=== PATIENT | male | born 1945 | race Native Hawaiian/Other Pacific Islander ===

== ENCOUNTER 2016-10-17 19:41 | Outpatient (CLI) | payer OTHER | END 2016-10-17 19:44 | disposition short-term general hospital (02) | LOC: AMB 19:41 | DX: R07.89 Other chest pain (principal); I25.2 Old myocardial infarction | CPT/HCPCS: A0425; A0427 ==

== ENCOUNTER 2016-10-17 19:49 | Emergency (ER) | payer OTHER ==
[~2016-10-17] VITALS: Ht 182.9 cm; Wt 51.3 kg
[2016-10-17 20:24] LABS: PLATELET COUNT 247 K/uL (142-355)
[2016-10-17 20:34] LABS: POTASSIUM 3.5 mmol/L (3.6-5.2); SODIUM 135 mmol/L (136-145)
[2016-10-17 21:00] VITALS: TEMP 98
[2016-10-17 21:30] VITALS: BP 117/73
[2016-10-17 21:51] LABS: PARTIAL THROMBOPLASTIN TIME 24.1 SECONDS (24.5-33.6)
== END 2016-10-17 21:35 | disposition left against medical advice (07) ==
LOC: EDBD 19:49 → ED 19:49
PROVIDERS: Emergency Medicine
DX: R07.89 Other chest pain (principal); I20.8 Other forms of angina pectoris; E16.1 Other hypoglycemia
CPT/HCPCS: 36415; 80053; 80307; 80320; 80329; 81000; 82550; 82553; 84484; 85027; 85610; 85730; 93005; 99284; G0479

== ENCOUNTER 2017-03-24 16:48 | Inpatient (IN) | payer OTHER ==
[~2017-03-24] VITALS: Ht 182.9 cm; Wt 57.6 kg
[2017-03-24] VITALS (9 sets, daily range): BP systolic 105–128; BP diastolic 70–79; TEMP 98.4–98.6; Ht 182.9 cm; Wt 57.6 kg
--- NOTE | 2017-03-24 17:15 | NUR ---
PT DIRECT ADMITTED FROM DR. VILLALOBOS OFFICE, UPON ARRIVAL PATIENT'S 02 SATURATION WAS 88%, PNEUMONIA PROTICAL STARTED ON PATIENT. ABG PREFORMED, THEN OXYGEN APPLIED AT 2 LITERS.
--- NOTE | 2017-03-24 20:23 | NUR ---
RESP IS AT BEDSIDE. INSTRUCTED PT ON IS AND PT DEMONSTRATED. PT WAS GIVEN RESP TREATMENT PER MASK AND TOLERATED WELL. PT IS COUGHING UNPRODUCTIVELY. SISTER STEPHEN IS HERE. BLOOD WAS DRAWN FOR LABS. PT IS ADMITTED WITH PNEUMONIA.
[2017-03-24 20:28] LABS: PLATELET COUNT 197 K/uL (142-355)
[2017-03-24 20:42] LABS: POTASSIUM 3.8 mmol/L (3.6-5.2); SODIUM 131 mmol/L (136-145)
[2017-03-25] VITALS (22 sets, daily range): BP systolic 11–140; BP diastolic 54–96; TEMP 98.1–99.5
--- NOTE | 2017-03-25 07:00 | NUR ---
UPON PATIENT'S DAILY ASSESSMENT, NOTICED PT'S TEMP WAS ELEVATED AT 99.5, WILL CONTINUE TO MONITOR AND ASSESS TEMP.
[2017-03-25 07:55] LABS: PLATELET COUNT 189 K/uL (142-355)
[2017-03-25 08:23] LABS: POTASSIUM 3.7 mmol/L (3.6-5.2); SODIUM 131 mmol/L (136-145)
--- NOTE | 2017-03-25 09:00 | NUR ---
SPOKE WITH DR. ROBINS AND INFORMED HER OF PATTIENTS MORNING LAB RESULTS. CONTINUING TO MONITOR PATIENTS OXYGEN SATURATION. PATIENT ON 02 AT 2L WITH OXYGEN SATURATION AT 95%
--- NOTE | 2017-03-25 10:00 | NUR ---
PATIENTS FAMILY AT BEDSIDE
--- NOTE | 2017-03-25 12:00 | NUR ---
PT STATED HE DID NOT FEEL WELL, PATIENT'S HANDS WERE TREMBLING AND TEMP REMAINED AT 99.1, CALLED AND SPOKE WITH LAWANDA ASCENCIO TO DRAW NEW BLOOD CULTURES X1 AND GIVE TYLENOL AFTER CULTURES ARE DRAWN. WILL CONTINUE TO MONITOR PATIENT'S CONDITION.
--- NOTE | 2017-03-25 14:00 | NUR ---
SPOKE WITH DR. DRAPER, INFORMED HER OF PATIENT'S HAD SHAKING AND BEING ANXIOUS, DR. DRAPER ORDERED PATIENT ONE BEER EVERY DAY. ALSO ORDERED WAS SOLUMEDROL 125 MG IV EVERY 12 HOURS.
--- NOTE | 2017-03-25 15:05 | NUR ---
PATIENT COMPLAINED OF HEADACHE AND NECK CRAMPS, READJUSTED PATIENT, AND GAVE TYLENOL. PATIENT RESTING COMFORTABLY WITH EYES CLOSED. WILL CONTINUE TO MONITOR.
--- NOTE | 2017-03-25 20:14 | NUR ---
PT AWAKE AND ORIENTED SITTING UP IN BED WITH HOB ELEVATED, NO S/S OF PAIN OR DISTRESS NOTED, IV INTACT TO L FA WITH NO PROBLEMS NOTED TO SITE, RESP RATE NONLABORED, O2 AT 2LPM VIA NC, TALKING WITH FAMILY WHO ARE AT BEDSIDE, WILL MONITOR CLOSELY, RAILS UP X3, CALL LIGHT IN REACH, BED IN LOW POSITION. ENCOURAGED TO CALL NEEDED.
--- NOTE | 2017-03-25 21:03 | NUR ---
03/25/17 AT 2024DR. ROBINS AND FAMILY AT BEDSIDE, NO S/S OF DISTRESS NOTED, DR TALKING TO FAMILY ABOUT HIS CARE AND ASKING IF PT WOULD WANT A PEG TUBE TO IMPROVE HIS NUTRITIONAL STATUS. WILL CONTINUE TO MONITOR CLOSEY, RAILS UP X3, CALL LIGHT IN REACH, BED IN LOW POSITION.
--- NOTE | 2017-03-25 21:06 | NUR ---
PT DRANK 1 ENSURE MIXED IN ICE CREAM. WILL MONITOR CLOSELY.
--- NOTE | 2017-03-25 22:09 | NUR ---
PT RESTING WITH EYES CLOSED, NO S/S OF PAIN OR DISTRESS NOTED, IV INTACT WITH FLUID ONGOING, RESP RATE NONLABORED, O2 AT 2LPM VIA NC, URINAL AT BEDSIDE, PT AROUSES AND DENIES ANY PROBLEMS, REPOSITIONED TO L SIDE WITH FEET ELEVATED ON PILLOW, WILL MONITOR, RAILS UP X3, CALL LIGHT IN REACH, BED IN LOW POSITION.
[2017-03-26] VITALS (24 sets, daily range): BP systolic 101–157; BP diastolic 60–110; TEMP 97.7–99.3
--- NOTE | 2017-03-26 00:58 | NUR ---
03/26/17 AT 0018PT RESTING IN BED WITH EYES CLOSED AND SNORNING NOTED, NO S/S OF PAIN OR DISTRESS NOTED, IV INTACT WITH FLUID ONGOING, RESP RATE NONLABORED, O2 AT 2LPM VIA NC, URINAL AT BEDSIDE, REPOSITIONED TO BACK WITH FEET ELEVATED ON PILLOW, WILL MONITOR, RAILS UP X3, BED IN LOW POSITION.
--- NOTE | 2017-03-26 02:18 | NUR ---
03/26/17 AT 0208RESTING IN BED WITH EYES CLOSED AND SNORING NOTED, NO S/S OF PAIN OR DISTRESS NOTED, RESP RATE NONLABORED, O2 AT 2LPM VIA NC, IV INTACT WITH FLUID ONGOING AND NO PROBLEMS NOTED TO SITE, REPOSITIONED TO R SIDE, FEET ELEVATED ON PILLOW, WILL MONITOR, RAILS UP X3, BED IN LOW POSITION.
--- NOTE | 2017-03-26 04:09 | NUR ---
PT RESTING QUIETLY IN BED WITH EYES CLOSED, NO S/S OF PAIN OR DISTRESS NOTED, IV INTACT TO L FA WITH NO PROBLEMS NOTED TO SITE AND BANANA BAG INFUSING AT 83ML/HR, RESP RATE NONLABORED, O2 AT 2LPM VIA NC, URINAL WITHIN PT'S REACH, VITALS BEING MONITORED Q HOUR. REPOSITIONED PT TO HIS BACK, FEET ELEVATED ON PILLOW, WILL MONITOR CLOSELY, RAILS UP X3, BED IN LOW POSITION, CALL LIGHT IN REACH. PT HAS SLEPT WELL DURING THE NIGHT.
--- NOTE | 2017-03-26 04:36 | NUR ---
PT AROUSES AND DENIES ANY PROBLEMS, ASKED WHAT TIME IT IS, STATES THAT HE IS GLAD HE FINALLY GOT SOME SLEEP, WILL CONTINUE TO MONITOR CLOSELY, RAILS UP X3, BED IN LOW POSITION, CALL LIGHT IN REACH.
[2017-03-26 05:53] LABS: PLATELET COUNT 184 K/uL (142-355)
[2017-03-26 06:05] LABS: POTASSIUM 2.8 mmol/L (3.6-5.2); SODIUM 136 mmol/L (136-145)
--- NOTE | 2017-03-26 06:24 | NUR ---
PT RESTING IN BED WITH EYES CLOSED, NO S/S OF PAIN OR DISTRESS NOTED, IV INTACT WITH FLUID ONGOING, RESP RATE NONLABORED, O2 IN USE, REPOSITIONED TO L SIDE WITH FEET ELEVATED ON PILLOW, PT AROUSED AND DENIES ANY PROBLEMS OR NEEDS, WILL MONITOR CLOSELY, RAILS UP X3, BED IN LOW POSITION.
--- NOTE | 2017-03-26 09:15 | NUR ---
RESPIRATORY AT BS. ALBUTEROL TX ADMINISTERED. HR 90-94 WHILE DOING TX. NAD NOTED.
--- NOTE | 2017-03-26 10:30 | NUR ---
PT VOICES C/O HAVING A VERY SORE THROAT. WHILE AT , PT VOICES THAT HE HAS HAD AN EGD WITH ESOPHAGUS STRETCHING 3-4 YEARS AGO. ALISA ADDISON, RN EXPLAINED TO THE PT THAT WE MAY NEED TO GO BACK IN AND BE SURE HIS ESOPHAGUS DOES NOT NEED TO BE RESTRETCHED. PT CONSENTED TO HAVING THE EGD. DR. ROBINS NOTIFIED OF HX. DR. ROBINS ADVISED US TO CONSULT WITH DR. DILLON. DR. DILLON NOTIFIED. SURGERY TEAM NOTIFIED. WILL WAIT FOR ADEQUATE AMOUNT OF HOURS FROM LAST FLUID INTAKE.
--- NOTE | 2017-03-26 11:20 | NUR ---
PT TRANSFERRED FROM [facility] VIA W/C, PT AWAKE, ANSWERS QUESTIONS WHEN ASKED.
--- NOTE | 2017-03-26 11:20 | NUR ---
PT AT BS AND SAT PT UP ON THE SIDE OF THE BED. PT BECAME TACHYCARDIC. PT ASSISTED BACK TO LYING IN THE BED.
--- NOTE | 2017-03-26 11:36 | NUR ---
PT AT BS TO ASSIST PT TO SIT UP ON THE SIDE OF THE BED. PT TOLERATING WELL. NAD NOTED.
--- NOTE | 2017-03-26 13:50 | NUR ---
PT TOOK TO OR VIA BED BY OR STAFF. NAD NOTED. PT TALKING TO STAFF IN ROUTE TO OR. FAMILY NOTIFIED OF EGD BEING PERFORMED.
[2017-03-27] VITALS: BP 140/84; TEMP 98.1
[2017-03-27 04:00] VITALS: BP 149/84; TEMP 97.9
[2017-03-27 06:04] LABS: PLATELET COUNT 222 K/uL (142-355)
[2017-03-27 06:23] LABS: SODIUM 135 mmol/L (136-145)
[2017-03-27 08:00] VITALS: BP 155/75; TEMP 98.8
[2017-03-27 12:00] VITALS: BP 142/79; TEMP 98.8
--- NOTE | 2017-03-27 14:20 | NUR ---
IV TO LEFT WRIST LEAKING. IV D/C'D. 22G STARTED TO PTS RIGHT AC. IV PLACED WITH STERILE TECHNIQUE. PT TOLERATED PROCEDURE WELL. IV FLUIDS RESTARTED AND INFUSING WITHOUT DIFFICULTY.
[2017-03-27 16:00] VITALS: BP 153/92; TEMP 98.6
[2017-03-27 20:00] VITALS: BP 148/88; TEMP 98.6
[2017-03-28] VITALS: BP 148/82; TEMP 98.4
[2017-03-28 04:00] VITALS: BP 138/80; TEMP 98.3
[2017-03-28 05:23] LABS: PLATELET COUNT 282 K/uL (142-355)
[2017-03-28 06:04] LABS: POTASSIUM 3.6 mmol/L (3.6-5.2); SODIUM 133 mmol/L (136-145)
[2017-03-28 08:00] VITALS: BP 149/87; TEMP 98.6
[2017-03-28 12:00] VITALS: BP 152/86; TEMP 97.9
[2017-03-28 16:00] VITALS: BP 141/87; TEMP 97.9
--- NOTE | 2017-03-28 16:06 | NUR ---
PATIENT DISCHARGED HOME WITH NIECE. SCRIPT FOR BEDSIDE COMMODE, WALKER WITH WHEELS AND HOSPITAL BED GIVEN TO DAUGHTER. ORDER FAXED TO [facility] FOR PT AND OT TO EVAL AND TREAT. METER TESTER WILL FAX CLINICAL INFORMATION TO [facility] ON FRIDAY, MARCH 31, 2017 FOR POSSIBLE SWING BED PLACEMENT IF PATIENT DOES NOT PROGRESS AT HOME.
--- NOTE | 2017-03-28 17:29 | NUR ---
DC INSTRUCTIONS GIVEN TO PT AND FAMILY. EDUCATION PROVIDED FOR SMOKING AND ALCOHOL CESSATION. ENCOURAGED PT TO DRINK ENSURE PLUS BID UNLESS NOT EATING AND THEN 5 CANS A DAY IF NOT EATING. RX GIVEN TO PT AND FAMILY. PT TO FOLLOW UP WITH DR ROBINS IN 10 DAYS AND TO BRING FOOD AND BM JOURNAL WITH PT TO APPT. IV DC'D WITH CANNULA INTACT AND SITE CARE PROVIDED.
--- NOTE | 2017-03-28 18:00 | NUR ---
PT LEFT VIA WC AT THIS TIME
== END 2017-03-28 18:00 | disposition home or self-care (01) | DRG 190 ==
LOC: ICU 16:48 → MED/SURG 03-26 20:55 → EDBD 03-28 18:00 → MED/SURG 03-28 18:00
PROVIDERS: ADMIT Family Medicine
PROC: 0D758ZZ Dilation of Esophagus, Via Natural or Artificial Opening Endoscopic (ICD-10-PCS; principal; 2017-03-26)
DX: J44.0 Chronic obstructive pulmonary disease with (acute) lower respiratory infection (principal); J18.8 Other pneumonia, unspecified organism; E46 Unspecified protein-calorie malnutrition; Z68.1 Body mass index [BMI] 19.9 or less, adult; J44.1 Chronic obstructive pulmonary disease with (acute) exacerbation; R62.7 Adult failure to thrive; F10.10 Alcohol abuse, uncomplicated; I95.9 Hypotension, unspecified; J44.9 Chronic obstructive pulmonary disease, unspecified; R13.19 Other dysphagia; K44.9 Diaphragmatic hernia without obstruction or gangrene; K20.8 Other esophagitis; G47.09 Other insomnia; K29.00 Acute gastritis without bleeding; E86.0 Dehydration
CPT/HCPCS: 36415; 36600; 80053; 80200; 81000; 82746; 82805; 83605; 83735; 84100; 84134; 84425; 84443; 85027; 87040; 87070; 87205; 90732; 93005; 94640; 94664; 94760; 96372; J1100; J1200; J1956; J2001; J2060; J2405; J2704; J2930; J3260; J3411; J3475; J3480; J3490

== ENCOUNTER 2017-05-15 11:20 | Outpatient (CLI) | payer OTHER | END 2017-05-15 19:39 | disposition home or self-care (01) | LOC: RAD 11:20 → EDBD 11:20 → RAD 19:39 | DX: R13.12 Dysphagia, oropharyngeal phase (principal) ==

== ENCOUNTER 2017-07-21 17:49 | Observation (INO) | payer OTHER ==
[~2017-07-21] VITALS: Ht 182.9 cm; Wt 47.8 kg
[2017-07-21 20:41] LABS: PLATELET COUNT 375 K/uL (142-355)
[2017-07-21 21:17] LABS: POTASSIUM 4.7 mmol/L (3.6-5.2)
[2017-07-21 22:18] VITALS: BP 145/92; TEMP 98.9; Ht 182.9 cm; Wt 47.8 kg
--- NOTE | 2017-07-21 23:22 | NUR ---
1930 ASSESSMENT DONE, PATIENT & FAMILY ORIENTED TO ROOM, DENIES ANY C/O, WILL CONTINUE TO MONITOR
[2017-07-21] MEDS ORDERED: PENTOXIFYLLINE400 M1 PO (23:55)
[2017-07-21] MEDS ORDERED: COZAAR100 MG PO (23:56)
[2017-07-21] MEDS ORDERED: MEGE40TA32 PO (23:57)
[2017-07-21] MEDS ORDERED: LIPITOR10 MG PO (23:57)
[2017-07-21] MEDS ORDERED: PRED20TA27 PO (23:58)
[2017-07-22 00:25] VITALS: BP 152/88; TEMP 98.7
[2017-07-22 04:00] VITALS: BP 167/91; TEMP 98
[2017-07-22 08:00] VITALS: BP 169/96; TEMP 98.3
[2017-07-22 09:40] LABS: PLATELET COUNT 339 K/uL (142-355)
[2017-07-22 09:56] LABS: POTASSIUM 4.5 mmol/L (3.6-5.2)
[2017-07-22 12:00] VITALS: BP 154/81; TEMP 98.3
--- NOTE | 2017-07-22 12:15 | NUR ---
PATIENT IS SITTING UP IN BED AFTER EATING A LITTLE OF HIS LUNCH BUT STATES THAT IT WAS TO HARD HE COULD NOT EAT IT. PATIENT HAD MASHED POTATOES, CUBED STEAK, OKRA AND TOMATOES. PATIENT STATED THAT THE MASHED POTATOES DIDN'T TASTE RIGHT. HOW EVER HIS NURSE TOLD ME THAT HE HAD A HIGH CALORIE SUPPLEMENT DRINK ABOUT ON HOUR AGO. PATIENT DENIES COMPLAINTS AND STATES HE IS READY TO GO HOME. NO PROBLEMS NOTED AT THIS TIME. PATIENT IS ALERT AND ORIENTED X4 AND NO SOB NOTED. PATIENT ALSO STATED THAT HE FELT MUCH BETTER.
--- NOTE | 2017-07-22 12:31 | NUR ---
PAULY DUTTA APPLIED TO SEBASTIEN EXT. NO PROBLEMS NOTED.
--- NOTE | 2017-07-22 14:20 | NUR ---
PATIENT IS BEING DISCHARGED HOME TODAY AND IS BEING REFERRED TO [facility] FOR READMISSION TO THEIR SERVICES.
[2017-07-22 16:00] VITALS: BP 161/81; TEMP 98.1
--- NOTE | 2017-07-22 16:30 | NUR ---
JP HERE TO CONSULT WITH PT AND TO TALK WITH FAMILY. JP WROTE ORDERS TO START SOFT DIET AND SUPERVISION NEEDED. BEREKET GARZA AND JP DUNLAP TALKED WITH FAMILY AND FAMILY VERBALIZES UNDERSTANDING AND IS AWARE OF NEED FOR SWALLOW STUDY. BLANKA DORAN SENT REFERRAL FOR [facility].
--- NOTE | 2017-07-22 16:47 | NUR ---
CALLED AND SPOKE WITH PATIENT'S NIECE, KAREEM INGRAM. THEY PLAN TO TAKE PATIENT BACK TO HER MOTHER'S HOME WHO IS HIS PRIMARY EDUCATIONAL CONSULTANT. DISCUSSED WITH NIECE DR. ROBINS'S RECOMMENDATIONS FOR PEG TUBE AND HOSPICE REFERRAL AND THE FAMILY DECLINES SERVICES AT THIS TIME. PATIENT WILL BE REFERRED BACK TO [facility] FOR FOLLOW UP.
--- NOTE | 2017-07-22 18:25 | NUR ---
DR. MELENDEZ HERE TO CONSULT WITH PT AND TO TALK TO FAMILY. FAMILY TELLS DR. MELENDEZ AND BEREKET RN THAT SWALLOW STUDY IS NOT NEEDED AT THIS TIME. PT WAITING ON RIDE TO GO HOME AT THIS TIME.
--- NOTE | 2017-07-22 18:50 | NUR ---
IV D/C'D. D/C PAPERS SIGNED BY FAMILY. FAMILY STATES UNDERSTANDING. FAMILY INSTRUCTED TO FU WITH DR. ROBINS. PT WHEELED OUT AT THIS TIME VIA W/C. NO PROBLEMS NOTED.
== END 2017-07-22 18:30 | disposition home or self-care (01) ==
LOC: MED/SURG 17:49
PROVIDERS: ADMIT Family Medicine
DX: J44.1 Chronic obstructive pulmonary disease with (acute) exacerbation (principal); R05 Cough; R63.0 Anorexia; F03.90 Unspecified dementia, unspecified severity, without behavioral disturbance, psychotic disturbance, mood disturbance, and anxiety; F10.20 Alcohol dependence, uncomplicated; R53.1 Weakness; R06.02 Shortness of breath; R26.81 Unsteadiness on feet
CPT/HCPCS: 36415; 36600; 80053; 80335; 82805; 83735; 84100; 85027; 85610; 87070; 87205; 93005; 94640; 94664; 94760; 96365; 96366; 96375; 99220; G0378; G0379; J2930

== ENCOUNTER 2018-08-18 19:41 | Observation (INO) | payer OTHER ==
[~2018-08-18] VITALS: Ht 182.9 cm; Wt 50.1 kg
[~2018-08-18 19:41] MED LIST: COZAAR100 MG PO; LIPITOR10 MG PO; MEGE40TA32 PO; PENTOXIFYLLINE400 M1 PO; PRED20TA27 PO
[2018-08-18] MEDS ORDERED: KAPSPARGO SPRI100 MG PO (19:54)
[2018-08-18] MEDS ORDERED: PANTOPRAZOLE SO40 M1 PO (19:54)
[2018-08-18] MEDS ORDERED: ALPR0.5T24 PO (19:55)
[2018-08-18] MEDS ORDERED: ASPIR-LOW81 MG PO (19:56)
[2018-08-18] MEDS ORDERED: SYMBICORT1 AE1 INH (19:57)
[2018-08-18] MEDS ORDERED: RANI150T78 PO (19:57)
[2018-08-18] MEDS ORDERED: [UNRECOGNIZED DRUG - OTHER] PO (19:58)
[2018-08-18] MEDS ORDERED: VITAMIN B-122000 MCG PO (19:58)
[2018-08-18] MEDS ORDERED: PERCOCET1 TA3 PO (19:59)
[2018-08-18 20:03] VITALS: BP 131/74; TEMP 99
[2018-08-18 20:23] LABS: PLATELET COUNT 313 K/uL (142-355)
[2018-08-18 21:29] LABS: POTASSIUM 4.4 mmol/L (3.6-5.2); SODIUM 136 mmol/L (136-145)
[2018-08-18 22:41] VITALS: BP 141/84; TEMP 98; Ht 182.9 cm; Wt 50.1 kg
[2018-08-19] VITALS: BP 141/81; TEMP 98
[2018-08-19 05:12] VITALS: BP 117/62; TEMP 98.6
[2018-08-19 08:00] VITALS: BP 135/88; TEMP 97.5
[2018-08-19 12:00] VITALS: BP 130/82; TEMP 98.1
[2018-08-19 14:03] LABS: PARTIAL THROMBOPLASTIN TIME 29.2 SECONDS (24.5-33.6)
[2018-08-19 16:00] VITALS: BP 151/89; TEMP 97.8
[2018-08-19 20:00] VITALS: BP 141/91; TEMP 97.9
[2018-08-20] VITALS: BP 148/88; TEMP 97.9
[2018-08-20 04:00] VITALS: BP 142/78; TEMP 98
[2018-08-20 05:43] LABS: PLATELET COUNT 314 K/uL (142-355)
[2018-08-20 06:01] LABS: POTASSIUM 4.8 mmol/L (3.6-5.2)
[2018-08-20 08:00] VITALS: BP 148/87; TEMP 98.2
[2018-08-20 12:00] VITALS: BP 145/89; TEMP 97.6
== END 2018-08-20 17:10 | disposition home or self-care (01) ==
LOC: ED 19:41 → MED/SURG 21:59
PROVIDERS: Emergency Medicine; Internal Medicine; ADMIT Internal Medicine
DX: J44.1 Chronic obstructive pulmonary disease with (acute) exacerbation (principal); I10 Essential (primary) hypertension; E78.49 Other hyperlipidemia; I73.9 Peripheral vascular disease, unspecified; R63.6 Underweight; Z68.1 Body mass index [BMI] 19.9 or less, adult; F17.210 Nicotine dependence, cigarettes, uncomplicated; R09.02 Hypoxemia; R06.09 Other forms of dyspnea; M25.552 Pain in left hip; M54.5 Low back pain
CPT/HCPCS: 80053; 82550; 82553; 84484; 85027; 85610; 85730; 93005; 94640; 94664; 94760; 96374; 99220; 99284; G0378; J0132; J0696; J1650; J2920; J2930

== ENCOUNTER 2019-03-23 13:55 | Outpatient (CLI) | payer OTHER ==
[~2019-03-23 13:55] MED LIST changes: +ALPR0.5T24 PO; +ASPIR-LOW81 MG PO; +KAPSPARGO SPRI100 MG PO; +PANTOPRAZOLE SO40 M1 PO; +PERCOCET1 TA3 PO; +RANI150T78 PO; +SYMBICORT1 AE1 INH; +VITAMIN B-122000 MCG PO; +[UNRECOGNIZED DRUG - OTHER] PO
== END 2019-03-23 13:59 | disposition short-term general hospital (02) ==
LOC: AMB 13:55
DX: R06.03 Acute respiratory distress (principal); R94.31 Abnormal electrocardiogram [ECG] [EKG]
CPT/HCPCS: A0425; A0427

== ENCOUNTER 2019-03-23 14:09 | Emergency (ER) | payer OTHER ==
[~2019-03-23] VITALS: Ht 182.9 cm; Wt 49.9 kg
[2019-03-23 14:32] LABS: PLATELET COUNT 398 K/uL (142-355)
[2019-03-23 14:38] LABS: POTASSIUM 4.1 mmol/L (3.6-5.2); SODIUM 140 mmol/L (136-145)
[2019-03-23 18:25] VITALS: BP 147/88; TEMP 98
== END 2019-03-23 18:26 | disposition home or self-care (01) ==
LOC: ED 14:09
PROVIDERS: Emergency Medicine
DX: R06.03 Acute respiratory distress (principal); R09.02 Hypoxemia
CPT/HCPCS: 80053; 82550; 82553; 83605; 83880; 84484; 85027; 93005; 94664; 96365; 99284; J0696

== ENCOUNTER 2020-09-21 15:15 | Outpatient (CLI) | payer OTHER | END 2020-09-21 23:51 | disposition home or self-care (01) | LOC: RAD 15:15 | PROVIDERS: ATTEND Family Medicine | DX: M54.5 Low back pain (principal); M54.2 Cervicalgia; M25.552 Pain in left hip ==

== ENCOUNTER 2020-10-29 11:25 | Outpatient (CLI) | payer OTHER | END 2020-10-29 22:42 | disposition home or self-care (01) | LOC: RAD 11:25 | PROVIDERS: ATTEND Family Medicine | DX: J44.9 Chronic obstructive pulmonary disease, unspecified (principal); R05 Cough ==

== ENCOUNTER 2020-12-04 16:26 | Inpatient (IN) | payer OTHER ==
[2020-12-04] VITALS (7 sets, daily range): BP systolic 108–130; BP diastolic 62–69; TEMP 97.9–98.5; Ht 182.9 cm; Wt 49.6 kg
[~2020-12-04] VITALS: Ht 182.9 cm; Wt 49.6 kg
[2020-12-04 17:12] LABS: PLATELET COUNT 258 K/uL (142-355)
[2020-12-04 17:20] LABS: POTASSIUM 4.3 mmol/L (3.6-5.2); SODIUM 136 mmol/L (136-145)
--- NOTE | 2020-12-05 00:25 | NUR ---
INCREASED FIO2 TO 50%
--- NOTE | 2020-12-05 03:32 | NUR ---
LATE ENTRY: PATIENT WAS ASSESED UPON ARIVAL. NEW ORDERS WERE GIVEN FOR PATIENT TO BE PUT ON HIGHFLOW AND ADJUSTED BYT RT. PATIENT RESTING COMFORTABLY.
[2020-12-05 05:41] LABS: PLATELET COUNT 231 K/uL (142-355)
--- NOTE | 2020-12-05 05:41 | NUR ---
PATIENT TEMP IS TEMP 99. PATIENT RESTING COMFORTABBLY
[2020-12-05 05:58] LABS: POTASSIUM 4.5 mmol/L (3.6-5.2)
[2020-12-05 07:00] VITALS: BP 116/60
[2020-12-05 08:00] VITALS: BP 113/65; TEMP 98.2
--- NOTE | 2020-12-05 08:26 | NUR ---
DECREASED FIO2 TO 40% AT 40LPM ON HFNC. SPO2 AT 93%
[2020-12-05 09:00] VITALS: BP 112/66
--- NOTE | 2020-12-05 11:47 | NUR ---
SPOKE WITH PT'S ACQUISITIONS LIBRARIAN STEPHEN WHO GAVE CONSENT TO START REMDISIVIR.
--- NOTE | 2020-12-05 14:45 | NUR ---
PLACED PT ON 4LPM WITH HUMIDITY. SPO2 AT 94%
--- NOTE | 2020-12-05 18:14 | NUR ---
[facility] CONTACTED PER S JE RN TO REQUEST AN UPDATED HOMEMED LIST. INFOMRED THEY WOULD FAX UPDATED ONE.
[2020-12-05] MEDS ORDERED: CETI10TA PO (18:30)
[2020-12-05] MEDS ORDERED: METO100T37 PO (18:32)
[2020-12-05] MEDS ORDERED: ALPR0.5T24 PO (18:33)
[2020-12-05] MEDS ORDERED: AMLODIPINE BESYLATE PO (18:34)
[2020-12-05] MEDS ORDERED: SERTRALINE HYD100 MG PO (18:35)
[2020-12-05] MEDS ORDERED: OMEPRAZOLE DR40 MG PO (18:36)
[2020-12-05] MEDS ORDERED: PRAMIPEXOLE0.125 MG PO (18:37)
[2020-12-05 19:00] VITALS: TEMP 101.4
--- NOTE | 2020-12-05 20:45 | NUR ---
GIVEN TYLENOL 1000MG PO X 1 DOSE FOR AXILLARY TEMP OF 101.4. WILL MONITOR CLOSELY, PT DENIES ANY NEEDS AT THIS TIME.
--- NOTE | 2020-12-05 21:20 | NUR ---
NO REACTIONS NOTED TO TYLENOL, TEMP HAS DECREASED TO 100.5 AT THIS TIME. NO S/S OF DISTRESS NOTED, PT RESTING OFF AND ON WITH EYES CLOSED.
[2020-12-05 23:30] VITALS: TEMP 98.2
--- NOTE | 2020-12-05 23:30 | NUR ---
AXILLARY TEMP HAS NOW DECREASED TO 98.2.
[2020-12-06] VITALS (12 sets, daily range): BP systolic 107–150; BP diastolic 65–93; TEMP 97.6–98.2
--- NOTE | 2020-12-06 01:10 | NUR ---
RESTING WITH EYES CLOSED IN POSITON OF COMFORT, NO S/S OF PAIN OR DISTRESS NOTED, RESP RATE NONLABORED, O2 IN USE VIA NC, VITALS BEING MONITORED, IV LOCK INTACT, WILL MONITOR CLOSELY, RAILS UP, BED IN LOW POSITION.
[2020-12-06 04:54] LABS: PLATELET COUNT 262 K/uL (142-355)
[2020-12-06 05:22] LABS: POTASSIUM 4.6 mmol/L (3.6-5.2)
--- NOTE | 2020-12-06 05:42 | NUR ---
RESTING ON L SIDE WITH EYES CLOSED, NO S/S OF PAIN OR DISTRESS NOTED, RESP RATE NONLABORED, O2 IN USE VIA NC WITH SAT OF 95%, DIRECTOR OF RESOURCE DEVELOPMENT IN USE WITH RATE OF 75, VITALS BEING MONITORED, 20G IV INTACT TO R AC, URINAL WITHIN PT'S REACH, WILL MONITOR, RAILS UP, BED IN LOW POSITION.
--- NOTE | 2020-12-06 08:37 | NUR ---
CHANGED TO NRB BECAUSE TO SAT.
--- NOTE | 2020-12-06 13:33 | NUR ---
PT RESTING QUIETLY. NO DISTRESS NOTED. PT IS NOTED TO HAVE SOME WEAKNESS WITH STANDING. PT IS ALERT AND ORIENTED. LUNGS ARE DIMINISHED. HEART RATE REGULAR. SKIN WARM AND DRY. NO WOUNDS NOTED. PT USES URINAL. WILL CONTINUE TO MONITOR PT.
--- NOTE | 2020-12-06 15:46 | NUR ---
REPORT GIVEN TO BEE ADRIAN AT THIS TIME BY JANUARY ALFARO RN
--- NOTE | 2020-12-06 15:47 | NUR ---
PT TRANSFERRED VIA W/C TO ROOM 1129 PER MD ORDERS WITH NON-REBREATHER ON. PER NGUYỄN, COPPERSMITH HELPER DR. ROBINS ORDERED PT TO BE PLACED IN ROOM 1129 ON V/S MACHINE WITH CONTINUOUS PULSE OX WITH MACHINE PLACED WHERE O2 SATS CAN BEEN SEEN AT NURSES STATION AND PT'S O2 SATS MONITORED CONTINUOUSLY.
--- NOTE | 2020-12-06 16:38 | NUR ---
PT TRANSFERRED FROM PCU#1 TO MED-SURG FLOOR AT 1500 PER HCP AND CONTINUE ORDERS PREVIOUSLY WRIITEN. PT DX WITH COVID, N/V AND DIARRHEA. HX OF HTN, COPD AND ANXIETY. PT ON NON-REBREATHER O2. HAS 20 GA TO RAC,SALINE LOCK WITH NO SWELLING OR REDNESS NOTED TO SITE. PT VOMITING IN BED M[place]INO DURING TRANSFER FROM PCU TO [facility]. ADMINISTER ZOFRAN ORDERED FOR N/V. CT OF CHEST DONE ON 12/05/20 AND SHOWS 6CM RIGHT UPPER LOBE MASS. PT ALERT AND COHERENT. PTS WALLET WHICH CONTAINED A SIGNIFICANT AMOUNT OF SOLORZANO, DEBIT CARD, MEDICARE CARD, INSURANCE CARD, DRIVERS LICENSE AND RECEIPTS LOCKED IN LOCK BOX IN MED ROOM AND PT UNABLE TO SIGN BUT SIGNED BY PRIMARY NURSE AND TECH PRIOR TO BEING LOCKED IN LOCK BOX.
--- NOTE | 2020-12-06 18:25 | NUR ---
IV SITE D/C'D DUE TO LEAKING FLUIDS. NEW IV SITE STARTED X5 ATTEMPTS TO LFA WITH 22GA AND INTACT AND NO SWELLING OR REDNESS NOTED.
--- NOTE | 2020-12-06 21:49 | NUR ---
PM MEDS GIVEN AT THIS TIME. PT. TOLERATED WELL. PT. SITTING UP IN A HIGH-FOWLERS POSITION WITH SIDE RAILS UP TIMES TWO WITH BED IN LOWEST POSITION WITH CALL LIGHT WITHIN REACH. PT. ON NON-REBREATHER MASK SATTING 94% AT THIS TIME WITH NO S/S OF ACUTE DISTRESS NOTED OR EXPRESSED BY PT AT THIS TIME. WILL CONTINUE TO MONITOR FOR ANY ACUTE CHANGES BY PATIENT.
[2020-12-07] VITALS (7 sets, daily range): BP systolic 114–139; BP diastolic 63–75; TEMP 96.1–98.3
--- NOTE | 2020-12-07 01:15 | NUR ---
22 G TO THE RIGHT FOREARM INITIATED AT THIS TIME TIMES ONE ATTEMPT. SITE PATENT AND READY OF USE. NO SIGNS OF EDEMA OR ERRYTHEMA TO SITE AT THIS TIME.
[2020-12-07 08:24] LABS: PLATELET COUNT 326 K/uL (142-355)
--- NOTE | 2020-12-07 11:23 | NUR ---
UPDATE GIVEN TO IRIS ABURTO WITH USE OF HIPAA PASSWORD.
--- NOTE | 2020-12-07 20:41 | NUR ---
PM MEDS GIVEN AT THIS TIME. PT. TOLERATED WELL. PT SATTING 92% ON 5L N/C IN A HIGH FOWLERS POSITION WITH SIDE RAILS UP TIMES TWO WITH BED IN LOWEST POSITION WITH CALL LIGHT WITHIN REACH. TELEMETRY AND PULSE OXIMETRY INTACT AND NO S/S OF ACUTE DISTRESS NOTED OR EXPRESSED BY PT.
[2020-12-08 04:00] VITALS: BP 112/65; TEMP 97.4
[2020-12-08 05:32] LABS: PLATELET COUNT 351 K/uL (142-355)
[2020-12-08 08:00] VITALS: BP 124/96; TEMP 97.4
--- NOTE | 2020-12-11 14:38 | NUR ---
pt scheduled for DEVELOPMENT VICE PRESIDENT appt with Dr. Bueno today 12/11 @ 2pm [phone] and fo fu with pcp Dr. Linda Coleman 12/14/20 @ 10am telehealth [phone] i have faxed DC summary to them. Jordana sofia notified.
== END 2020-12-08 14:35 | disposition home or self-care (01) | DRG 177 ==
LOC: ED 16:26 → PCU 20:09 → MED/SURG 12-06 16:20
PROVIDERS: Emergency Medicine Emergency Medical Services; ADMIT Family Medicine; ATTEND Family Medicine
DX: U07.1 COVID-19 (principal); J12.82 Pneumonia due to coronavirus disease 2019; J44.0 Chronic obstructive pulmonary disease with (acute) lower respiratory infection; F03.90 Unspecified dementia, unspecified severity, without behavioral disturbance, psychotic disturbance, mood disturbance, and anxiety; R91.8 Other nonspecific abnormal finding of lung field; I10 Essential (primary) hypertension
CPT/HCPCS: 36415; 36600; 80053; 82728; 82805; 83735; 84100; 84484; 85027; 85379; 86140; 87040; 87635; 94760; 96374; 99284; 99285; J0456; J0696; J1650; J2405; J3475; U0003

== ENCOUNTER 2021-02-04 20:37 | Inpatient (IN) | payer OTHER ==
[~2021-02-04] VITALS: Ht 182.9 cm; Wt 48.2 kg
[~2021-02-04 20:37] MED LIST changes: +AMLODIPINE BESYLATE PO; +CETI10TA PO; +METO100T37 PO; +OMEPRAZOLE DR40 MG PO; +PRAMIPEXOLE0.125 MG PO; +SERTRALINE HYD100 MG PO
[2021-02-04 20:50] VITALS: BP 151/70; TEMP 98.4
[2021-02-04 21:01] VITALS: BP 159/41
[2021-02-04 21:34] LABS: PLATELET COUNT 580 K/uL (142-355)
[2021-02-04 21:45] VITALS: BP 156/82
[2021-02-04 21:57] LABS: POTASSIUM 4.9 mmol/L (3.6-5.2)
[2021-02-04 22:30] VITALS: BP 140/73
[2021-02-04 23:00] VITALS: BP 142/66
[2021-02-04 23:30] VITALS: BP 143/65
[2021-02-05 00:01] VITALS: BP 156/85
[2021-02-05 01:15] VITALS: BP 156/78; TEMP 98.4
[2021-02-05 01:39] VITALS: BP 140/66; TEMP 98.1; Ht 182.9 cm; Wt 48.2 kg
[2021-02-05 04:00] VITALS: BP 140/67; TEMP 96.1
[2021-02-05 05:50] LABS: POTASSIUM 4.4 mmol/L (3.6-5.2)
[2021-02-05 08:00] VITALS: BP 152/79; TEMP 97.7
[2021-02-05 14:02] LABS: PLATELET COUNT 479 K/uL (142-355)
[2021-02-05 14:18] LABS: POTASSIUM 4.4 mmol/L (3.6-5.2)
[2021-02-05 20:00] VITALS: BP 135/68; TEMP 98.5
[2021-02-06] VITALS (8 sets, daily range): BP systolic 128–149; BP diastolic 61–78; TEMP 97.5–98.8
[2021-02-06 05:42] LABS: PLATELET COUNT 469 K/uL (142-355)
[2021-02-06] MEDS ORDERED: ALPR0.5T24 PO (08:31)
[2021-02-06] MEDS ORDERED: AMLODIPINE BESYLATE PO (08:32)
[2021-02-06] MEDS ORDERED: ASPIR-LOW81 MG (08:33)
[2021-02-06] MEDS ORDERED: FAMOTIDINE40 MG PO (08:34)
[2021-02-06] MEDS ORDERED: LIPITOR10 MG PO (08:34)
[2021-02-06] MEDS ORDERED: KAPSPARGO SPRI100 MG PO (08:39)
[2021-02-06] MEDS ORDERED: OMEPRAZOLE DR40 MG PO (08:40)
[2021-02-06] MEDS ORDERED: HYDR10TA47 PO (08:41)
[2021-02-07 04:21] VITALS: BP 150/67; TEMP 99.4
[2021-02-07 08:00] VITALS: BP 140/53; TEMP 97.6
[2021-02-07 08:48] VITALS: BP 140/53; TEMP 97.6
== END 2021-02-07 11:11 | disposition home health service (06) | DRG 682 ==
LOC: ED 20:37 → MED/SURG 23:59
PROVIDERS: ADMIT Emergency Medicine; ATTEND Family Medicine
DX: N17.8 Other acute kidney failure (principal); J18.8 Other pneumonia, unspecified organism; C34.90 Malignant neoplasm of unspecified part of unspecified bronchus or lung; C79.51 Secondary malignant neoplasm of bone; J44.0 Chronic obstructive pulmonary disease with (acute) lower respiratory infection; D64.89 Other specified anemias; E83.52 Hypercalcemia; I10 Essential (primary) hypertension; E86.0 Dehydration; I48.91 Unspecified atrial fibrillation
CPT/HCPCS: 36415; 80048; 80053; 81000; 82310; 82330; 82397; 83970; 84484; 85027; 87635; 93005; 94640; 94664; 94760; 96360; 96361; 99284; J0456; J0630; J0696; J1650; J2430; J3490; U0003